=== PATIENT | male | born 1965 | race Caucasian/White ===

== ENCOUNTER 2025-08-19 08:46 | Emergency (ER) | payer OTHER ==
[2025-08-19 08:56] LABS: BASOPHILS ABSOLUTE AUTO 0.05 K/uL (0.00-0.20); BASOPHILS PERCENT AUTO 0.9 % (0.0-1.0); EOSINOPHILS ABSOLUTE AUTO 0.10 K/uL (0.00-0.45); EOSINOPHILS PERCENT AUTO 1.8 % (0.0-6.0); IMMATURE GRAN ABSOLUTE AUTO 0.04 K/uL (0.00-0.05); IMMATURE GRAN PERCENT AUTO 0.7 % (0.0-0.4); LYMPHOCYTES ABSOLUTE AUTO 1.72 K/uL (1.00-4.80); LYMPHOCYTES PERCENT AUTO 31.0 % (24.0-44.0); MEAN PLATELET VOLUME 8.7 fL (9.4-12.4); MONOCYTES ABSOLUTE AUTO 0.43 K/uL (0.00-0.80); MONOCYTES PERCENT AUTO 7.7 % (0.0-8.0); NEUTROPHILS ABSOLUTE AUTO 3.21 K/uL (1.80-7.70); NEUTROPHILS PERCENT AUTO 57.9 % (41.0-71.0); NRBC ABSOLUTE 0.00 K/uL (0.00-0.02); NRBC PERCENT 0.0 /100WBC (0.0-0.2); PLATELET COUNT,PLT 209 K/uL (150-400); RED BLOOD CELL COUNT 5.04 M/uL (4.52-5.90); WHITE BLOOD CELL COUNT,WBC 5.55 K/uL (3.9-11.3)
[2025-08-19 09:08] LABS: INR 1.02 (0.86-1.11); PTT,PARTIAL THROMBOPLSTIN TIME 23.9 SEC (23.9-30.7)
[2025-08-19] MEDS: Iopamidol 755 MG/ML 500 ML Multipack Bottle IVPUSH STA (09:13)
[2025-08-19 09:17] LABS: A/G RATIO 1.1 (0.9-1.6); ALANINE AMINOTRANSFERASE,ALT 37 IU/L (14-63); ASPARTATE AMNIOTRANSFERASE,AST 20 IU/L (15-37); BILIRUBIN TOTAL 0.5 mg/dL (0.2-1.0); BLOOD UREA NITROGEN,BUN 11 mg/dL (7.0-18.0); CARBON DIOXIDE,CO2 25.5 mmol/L (21.0-32.0); CHLORIDE,CL 102 mmol/L (98-107); CREATININE 0.9 mg/dL (0.8-1.3); ESTIMATED GFR 98 mL/min (>60); GLUCOSE RANDOM 113 mg/dL (74-106); POTASSIUM,K 4.2 mmol/L (3.5-5.1); PROTEIN TOTAL,TP 7.6 g/dL (6.4-8.2); SODIUM,NA 136 mmol/L (136-148)
[2025-08-19 09:49] LABS: APPEARANCE,URINE CLEAR; GLUCOSE,URINE NEGATIVE (NEGATIVE); OCCULT BLOOD,URINE NEGATIVE (NEGATIVE)
[2025-08-19] MEDS: Aspirin 325 MG Tab.EC PO ONE (10:14)
== END 2025-08-19 10:38 ==
LOC: MW.ED 08:46
DX: I63.012 Cerebral infarction due to thrombosis of left vertebral artery (principal); I10 Essential (primary) hypertension; Z79.899 Other long term (current) drug therapy
CPT/HCPCS: 36415; 70450; 70496; 70498; 71045; 80053; 81003; 84484; 85025; 85610; 85730; 93005; 99285; A9270; Q9967